=== PATIENT | male | born 1950 | race Caucasian/White ===

== ENCOUNTER 2021-11-28 10:10 | Emergency (ER) | payer MEDICARE, BC ==
[~2021-11-28] VITALS: Ht 188 cm; Wt 113.6 kg
[2021-11-28 11:31] VITALS: BP 172/89
== END 2021-11-28 11:42 | disposition home or self-care (01) ==
LOC: EDBD 10:10 → ED 10:10
DX: U07.1 COVID-19 (principal); R52 Pain, unspecified; R05.9 Cough, unspecified; E11.9 Type 2 diabetes mellitus without complications; I10 Essential (primary) hypertension; Z90.49 Acquired absence of other specified parts of digestive tract